=== PATIENT | female | born 1950 | race Caucasian/White ===

== ENCOUNTER → 2018-05-14 | Outpatient (CLI) | payer MEDICARE, OTHER, BC ==
--- NOTE | 2018-05-14 12:33 | RADIOLOGY REPORT (SQ) ---
EXAM DESCRIPTION: CHEST PA/LATERAL COMPLETED DATE/TIME: 05/14/2018 12:25 pm REASON FOR STUDY: COUGH COMPARISON: None. EXAM PARAMETERS: NUMBER OF VIEWS: two views TECHNIQUE: Digital Frontal and Lateral radiographic views of the chest acquired. RADIATION DOSE: NA LIMITATIONS: none FINDINGS: LUNGS AND PLEURA: No opacities, masses or pneumothorax. No pleural effusion. MEDIASTINUM AND HILAR STRUCTURES: No masses or contour abnormalities. HEART AND VASCULAR STRUCTURES: Heart normal size. No evidence for failure. BONES: No acute findings. HARDWARE: None in the chest. OTHER: No other significant finding. IMPRESSION: NO SIGNIFICANT RADIOGRAPHIC FINDING IN THE CHEST. TECHNICAL DOCUMENTATION: JOB ID: [id number] [employer]- All Rights Reserved Reading location - IP/workstation name: [email or web address]
== END ==
LOC: OD 11:57
PROVIDERS: ATTEND Physician Assistant
DX: R05 Cough (principal)
CPT/HCPCS: 71046

== ENCOUNTER 2018-11-12 10:06 | Day surgery (SDC) | payer MEDICARE, OTHER, BC ==
[~2018-11-12 10:06] MED LIST: KETOROLAC TROMETHAMINE 0.45% 4 DROP/0.4 ML DROPERETTE OD PRN
[2018-11-12] MEDS: CYCLOPENTOLATE 0.2%/PHENYLEPHRINE 1% OPH SOLN 2 ML OD PRN ×3 (10:38→11:06)
[2018-11-12] MEDS: TROPICAMIDE 1% OPH SOLN 3 ML OD PRN ×3 (10:38→11:06)
[2018-11-12] MEDS: BESIFLOXACIN HCL 0.6% OPH SUSP 5 ML BOTTLE OD PRN ×4 (10:39→11:26)
[2018-11-12] MEDS: TETRACAINE HCL 0.5% OPH SOLN 4 ML OD PRN ×4 (10:40→11:11)
[2018-11-12] MEDS ORDERED: MIDAZOLAM 2 MG/2 ML INJ ONE (11:13)
[2018-11-12] MEDS: LIDOCAINE 1%/PHENYLEPHRINE 1.5% 1 ML VIAL ONE ×2 (11:18)
[2018-11-12] MEDS: CHONDR SU A NA/HYALUR INTRAOC KIT (SURGICARE) ONE ×2 (11:18)
[2018-11-12] MEDS: EPINEPHRINE INJ/PF 1 MG/1 ML AMPULE ONE ×2 (11:18)
[2018-11-12] MEDS: DORZOLAMIDE HCL 2%/TIMOLOL MALEAT 0.5% OPH SOLN 10 ML OD PRN ×2 (11:26)
--- NOTE | 2018-11-12 21:50 | [facility] OPERATIVE REPORT E ---
[facility] Operative Report NAME: DONALDO ROSADO AGE: 68Y DATE OF SURGERY: 11/12/2018 ROOM: PREOPERATIVE DIAGNOSIS: CATARACT, RIGHT EYE. POSTOPERATIVE DIAGNOSIS: CATARACT, RIGHT EYE. OPERATION: Cataract extraction with insertion of an IOL of the right eye. SURGEON: STEVIE GILLESPIE M.D. ANESTHESIA: Topical. PROCEDURE: After obtaining appropriate consent, the patient's right eye was prepped and draped in sterile fashion as well as the surgeon in a sterile manner and cataract surgery was started. First a paracentesis blade was used to make a side-port incision. Viscoelastic was used to inflate the anterior chamber. Next a 2.4 mm incision was made with a 2.4 mm blade, clear corneal temporally. A continuous capsulorrhexis was made using a cystotome and Utrata forceps. Following this hydrodissection was carried out to make the lens fully loose and mobile and it was rotated 90 degrees. Following this, a qonxft-wwo-qxwawka technique was used to phacoemulsify the lens with a CDE of 10.39. The remaining cortex was removed with irrigation/aspiration. Provisc was instilled into the capsular bag to inflate the bag. A SN60WF, 22.0 diopter lens was placed. The remaining viscoelastic material was removed with irrigation/aspiration. Following this, the incision was found to be watertight. Besivance was instilled into the eye and a protective shield was placed over the eye. The patient returned to the postoperative recovery in stable condition. DICTATING PHYSICIAN: STEVIE GILLESPIE M.D. [id number] PHY#: [id number] ID: [id number] JOB#: [id number] ACCT: [id number] cc:STEVIE GILLESPIE M.D. >
--- NOTE | 2018-11-12 21:56 | [facility] DISCHARGE SUMMARY E ---
[facility] Discharge Summary NAME: DONALDO ROSADO AGE: 68Y ADMITTED: 11/12/2018 DISCHARGED: 11/12/2018 HOSPITAL COURSE: This is a 68-year-old female who underwent cataract extraction of the right eye. DIAGNOSIS: CATARACT, RIGHT EYE. She underwent surgery because she was having trouble with small print. DISCHARGE INSTRUCTIONS: She should be on a regular diet. No bending at her waist, no heavy lifting. She should use her moxifloxacin, Predforte, and Ilevro at 3 p.m. and 8 p.m. and sleep with a rigid shield. I will see her for her 1 day postoperative tomorrow. DICTATING PHYSICIAN: STEVIE GILLESPIE M.D. [id number] PHY#: [id number] ID: [id number] JOB#: [id number] ACCT: [id number] cc:STEVIE GILLESPIE M.D. >
== END 2018-11-12 12:17 | disposition home or self-care (01) ==
LOC: SC 10:06
PROVIDERS: ATTEND Internal Medicine
DX: H25.11 Age-related nuclear cataract, right eye (principal); E11.9 Type 2 diabetes mellitus without complications; I10 Essential (primary) hypertension; Z79.899 Other long term (current) drug therapy; K21.9 Gastro-esophageal reflux disease without esophagitis
CPT/HCPCS: 66984; 82962; J2250; J3490 ×2; A9270; J0171; J2370; 142; V2632

== ENCOUNTER 2018-12-10 09:15 | Day surgery (SDC) | payer MEDICARE, OTHER, BC ==
[~2018-12-10 09:15] MED LIST changes: +CHONDR SU A NA/HYALUR INTRAOC KIT (SURGICARE) ONE; +EPINEPHRINE INJ/PF 1 MG/1 ML AMPULE ONE; +FENTANYL CITRATE INJ/PF 100 MCG/2 ML AMPUL ONE; -KETOROLAC TROMETHAMINE 0.45% 4 DROP/0.4 ML DROPERETTE OD PRN; +KETOROLAC TROMETHAMINE 0.45% 4 DROP/0.4 ML DROPERETTE OS PRN; +LIDOCAINE 1%/PHENYLEPHRINE 1.5% 1 ML VIAL ONE; +MIDAZOLAM 2 MG/2 ML INJ ONE
[2018-12-10] MEDS: BESIFLOXACIN HCL 0.6% OPH SUSP 5 ML BOTTLE OS PRN ×4 (10:00→10:53)
[2018-12-10] MEDS: TROPICAMIDE 1% OPH SOLN 3 ML OS PRN ×3 (10:00→10:25)
[2018-12-10] MEDS: CYCLOPENTOLATE 0.2%/PHENYLEPHRINE 1% OPH SOLN 2 ML OS PRN ×3 (10:00→10:25)
[2018-12-10] MEDS: TETRACAINE HCL 0.5% OPH SOLN 4 ML OS PRN ×3 (10:00→10:32)
[2018-12-10] MEDS: DORZOLAMIDE HCL 2%/TIMOLOL MALEAT 0.5% OPH SOLN 10 ML OS PRN ×2 (10:53)
--- NOTE | 2018-12-10 13:44 | Operative Report ---
Operative Report-[facility] Operative Report: DATE OF SURGERY: 12/10/2018 PREOPERATIVE DIAGNOSIS: Cataracts, left eye POSTOPERATIVE DIAGNOSIS: Cataract, left eye OPERATION: Cataract extraction with insertion of an IOL of the left eye. Intraocular Lens Model: [21.0 sn60wf] SURGEON: Shane Walters MD ANESTHESIA: Topical PROCEDURE: After obtaining appropriate consent, the patient's left eye was prepped and draped in a sterile fashion as well as the surgeon in the sterile manner and cataract surgery was started. First a paracentesis blade was used to make a side-port incision. Viscoelastic was used to inflate the anterior chamber. Next a 2.4 mm incision was made with a 2.4 mm blade, clear corneal temporarily. A continuous capsulorrhexis was made using a cystotome and Utrata forceps. Following this hydrodissection was carried out to make commands fully loose and mobile and it was rotated 90 degrees. Following this, a divide and conquer technique was used to phacoemulsify the lens. The remaining cortex was removed with an irrigation/aspiration. Provisc was instilled into the capsular bag to inflate the bag.The intracular lens was placed. The remaining viscoelastic material was removed with irrigation/aspiration. Following this, the incision was found to be watertight. Besivance and Cosopt was instilled into the eye and a protective shield was placed over the eye. The patient was turned to the postoperative recovery in a stable condition.
--- NOTE | 2018-12-10 13:45 | PDOC DISCHARGE SUMMARY ---
Discharge Summary-[facility] Discharge Summary: DATE OF SURGERY: 12/10/2018 PREOPERATIVE DIAGNOSIS: Cataract, left eye POSTOPERATIVE DIAGNOSIS: Cataract, left eye OPERATION: Cataract extraction with insertion of an IOL of the left eye. SURGEON: Shane Walters MD ANESTHESIA: Topical The patient underwent surgery because they are having [difficulty seeing newspaper]. They're to be on a regular diet, no bending at their waist, and no heavy lifting. They should use the prescribed antibiotic, NSAID, and steroid at 3 PM and 8 PM. They should sleep with a rigid shield and I will see them for 1 day postoperative tomorrow.
== END 2018-12-10 11:29 | disposition home or self-care (01) ==
LOC: SC 09:15
PROVIDERS: ATTEND Internal Medicine
DX: H25.12 Age-related nuclear cataract, left eye (principal); Z96.1 Presence of intraocular lens; I10 Essential (primary) hypertension; E11.9 Type 2 diabetes mellitus without complications
CPT/HCPCS: 66984; 82962; V2632; J2250; J3490 ×2; A9270; J0171; J2370; 142; J3010

== ENCOUNTER 2019-01-04 21:35 | Emergency (ER) | payer MEDICARE, OTHER, BC ==
[2019-01-04 22:40] VITALS: BP 138/62
--- NOTE | 2019-01-04 22:48 | RADIOLOGY REPORT (SQ) ---
XR WRIST 3 OR MORE VIEWS CLINICAL STATEMENT: bone tenderness COMPARISON: None FINDINGS: Bony alignment is anatomic. There is a minimally displaced triquetral avulsion fracture noted on the lateral view. Mild radiocarpal degenerative changes. Scaphoid bone appears intact. IMPRESSION: Minimally displaced triquetral avulsion fracture noted.
--- NOTE | 2019-01-04 22:49 | RADIOLOGY REPORT (SQ) ---
XR HAND 1-2 VIEWS CLINICAL STATEMENT: bone tenderness COMPARISON: None FINDINGS: Bony alignment is anatomic. Mild interphalangeal joint degenerative changes involving the DIP joints. Minimally displaced triquetral avulsion fracture noted at level of the wrist. The bones of the fingers are intact. IMPRESSION: Minimally displaced triquetral avulsion fracture.
--- NOTE | 2019-01-04 22:51 | RADIOLOGY REPORT (SQ) ---
XR KNEE 4 OR MORE VIEWS CLINICAL STATEMENT: bone tenderness COMPARISON: None FINDINGS: Bony alignment is anatomic. There is no fracture or dislocation. The soft tissues are unremarkable. Mild tricompartmental degenerative changes. No significant joint effusion. IMPRESSION: No fracture.
[2019-01-04] MEDS ORDERED: HYDROCODONE/ACETAMINOPHEN 5-325 MG (6 TAB/ER DISP) PO PRN (23:56)
--- NOTE | 2019-01-05 00:09 | ER Document Report ---
ED Fall - General Chief Complaint: Fall Stated Complaint: FALL,LEFT WRIST AND RIGHT KNEE INJURY Time Seen by Provider: 01/04/19 23:37 Primary Care Provider: [facility] [Provider Group] - Follow up in 3-5 days OLIVER PALMA MD [Primary Care Provider] - Follow up tomorrow Mode of Arrival: Wheelchair Information source: Patient, Relative Notes: 68-year-old female presented to ED for complaint of pain to her left wrist hand and right knee. She states she just tripped over a curb earlier today falling injuring her left wrist and hand and right knee. She states she has arthritis already and this is caused her trouble to walk. She states is extremely painful to bend or straighten her knee but when she gets that straightened she is able to tolerate it but the bending it [id number] is excruciating. She also is not able to use her wrist due to the pain. Patient is alert oriented respirations regular and unlabored speaking in full sentences. Pupils equal and react to light able to answer all questions appropriate no neurological deficits obvious. She denies hitting her head she denies being on any blood thinners. TRAVEL OUTSIDE OF THE [place] IN LAST 30 DAYS: No - HPI Occurred: This evening Where: Outdoors, Public place Context: Tripped - Over a curb Associated symptoms: None Location of injury/pain: Hand - Left, Knee - Right, Wrist - Left Quality of pain: Achy, Sharp, Throbbing Severity: Moderate Pain Level: 4 - Related data Allergies/Adverse Reactions: No Known Allergies Allergy (Verified 01/04/19 21:39) Past Medical History - General Information source: Patient - Social History Smoking Status: Never Smoker Frequency of alcohol use: None Drug Abuse: None Lives with: Family Family History: Reviewed & Not Pertinent Patient has suicidal ideation: No Patient has homicidal ideation: No - Past Medical History Cardiac Medical History: Reports: Hx Hypertension - CONTROLLED/MEDICATED Pulmonary Medical History: Reports: Hx Bronchitis - 2007 EENT Medical History: Reports: None Neurological Medical History: Reports: None Endocrine Medical History: Reports: Hx Diabetes Mellitus Type 2 Renal/ Medical History: Reports: None Malignancy Medical History: Reports: None GI Medical History: Reports: None Musculoskeletal Medical History: Reports Hx Arthritis, Reports Hx Musculoskeletal Deformity, Reports Hx Musculoskeletal Trauma Skin Medical History: Reports None Psychiatric Medical History: Reports: None Traumatic Medical History: Reports: Hx Fractures - Right arm many years ago left wrist 01/05/2019 Infectious Medical History: Reports: None Past Surgical History: Reports: Hx Cholecystectomy, Hx Hysterectomy, Hx Or thopedic Surgery - Back surgery - Immunizations Hx Diphtheria, Pertussis, Tetanus Vaccination: Yes - tetanus shot 06/2011 Hx Pneumococcal Vaccination: 04/21/08 Review of Systems - Review of Systems Constitutional: No symptoms reported EENT: No symptoms reported Cardiovascular: No symptoms reported Respiratory: No symptoms reported Gastrointestinal: No symptoms reported Genitourinary: No symptoms reported Female Genitourinary: No symptoms reported Musculoskeletal: Joint pain - Right knee left wrist and hand, Joint swelling - Right knee and left wrist and hand Skin: Change in color - Bruising swelling to right knee left hand and wrist Hematologic/Lymphatic: No symptoms reported Neurological/Psychological: No symptoms reported -: Yes All other systems reviewed and negative Physical Exam - Vital signs Vitals: Temp Pulse Resp BP Pulse Ox 98.7 F 64 18 138/62 H 96 01/04/19 22:37 01/04/19 22:37 01/04/19 22:37 01/04/19 22:37 01/04/19 22:37 Interpretation: Normal - General General appearance: Appears well, Alert - HEENT Head: Normocephalic, Atraumatic Eyes: Normal Pupils: PERRL - Respiratory Respiratory status: No respiratory distress Chest status: Nontender Breath sounds: Normal Chest palpation: Normal - Cardiovascular Rhythm: Regular Heart sounds: Normal auscultation Murmur: No - Abdominal Inspection: Normal Distension: No distension Bowel sounds: Normal Tenderness: Nontender Organomegaly: No organomegaly - Back Back: Normal, Nontender - Extremities General upper extremity: Normal color, Normal temperature General lower extremity: Normal color, Normal temperature. No: Nate's sign Wrist: Tender, Ecchymosis, Limited ROM. No: Abrasion, Deformity, Dislocation, Instability Hand: Tender - Neurological Neuro grossly intact: Yes Cognition: Normal Orientation: AAOx4 [place] Coma Scale Eye Opening: Spontaneous [place] Coma Scale Verbal: Oriented [place] Coma Scale Motor: Obeys Commands [place] Coma Scale Total: 15 Speech: Normal Motor strength normal: LUE, RUE, LLE, RLE Sensory: Normal - Psychological Associated symptoms: Normal affect, Normal mood - Skin Skin Temperature: Warm Skin Moisture: Dry Skin Color: Normal Course - Re-evaluation Re-evalutation: 01/05/19 02:56 X-ray discussed with patient and written report of x-rays given to patient. She did have a avulsion fracture of the left triquetrum. Patient was treated with a volar short arm splint she also had a bruised swollen painful right knee with difficulty bearing any weight on the right knee. She was treated with a knee immobilizer and then she was able to bear weight and stand the pain in her knee. She was treated with a [place] dispense pack and instructed to follow-up with her primary care and orthopedics. Patient verbalized understanding and agreement with treatment plan and patient was discharged home - Vital Signs Vital signs: Temp Pulse Resp BP Pulse Ox 98.7 F 64 18 138/62 H 96 01/04/19 22:37 01/04/19 22:37 01/04/19 22:37 01/04/19 22:37 01/04/19 22:37 - Diagnostic Test Radiology reviewed: Image reviewed, Reports reviewed Procedures - Immobilization Right Knee Time completed: 00:16 Immobilizer type: Knee immobilizer Performed by: PCT Post-Proc Neuro Vasc Exam: Normal Alignment checked and good: Yes Left Wrist Time completed: 00:17 Immobilizer type: Volar splint, Sling Performed by: PCT Post-Proc Neuro Vasc Exam: Normal Alignment checked and good: Yes Discharge - Discharge Clinical Impression: left triquetrum avulsion fracture Fall Qualifiers: Encounter type: initial encounter Qualified Code(s): W19.XXXA - Unspecified fall, initial encounter Right knee injury Qualifiers: Encounter type: initial encounter Qualified Code(s): S89.91XA - Unspecified injury of right lower leg, initial encounter Condition: Stable Disposition: HOME, SELF-CARE Additional Instructions: Fractured of the Wrist You have a fracture of a bone of the wrist. A splint or cast will be placed. The first few days, the injury should be elevated and ice packed. Healing usually takes about five or six weeks. It's critical that the wrist be kept immobilized until the fracture is healed. Do not allow the splint or cast to become damaged. If looseness develops, return for a new fitting. Don't do any physical work or sport activity which causes pain in the wrist. Call the doctor or return at once if pain becomes severe, or if the hand becomes numb or swollen. SUSPECTED INTERNAL KNEE INJURY: The examiner of your injured knee suspects an internal injury to the cartilage or internal ligaments. This must be further investigated by an data warehousing specialist. The knee should be protected, ice packed, and elevated while awaiting your follow-up exam by the orthopedist. If there is severe swelling, severe pain, or any new symptoms while awaiting your exam, you should call the orthopedist. (If he/she is unavailable, call us or return for re-examination.) KNEE IMMOBILIZING SPLINT: The knee immobilizing splint will protect the injury while healing begins. This type of splint does not allow the knee to bend at all. No running or sports will be possible. If the splint allows painfree walking, it's giving adequate protection. If there is still significant pain, crutches may be needed as well. Don't do anything that hurts. Adjusted the splint, if necessary. The stiffeners on the sides are attached with Velcro, so they can be easily moved to adjust for thigh and calf size. If you need help with these adjustments, come back. You will lose muscle strength in the thigh while using this splint. The doctor will advise you if it's safe to do isometric knee exercises while you use it. ICE & ELEVATION: Apply ice packs frequently against the painful area. Many different schedules are recommended, such as "20 minutes on, 20 minutes off" or "one hour ice, two hours rest." If you need to work, you may need to go longer between ice treatments. You should plan to have the area ice packed AT LEAST one-fourth of the time. The ice should be applied over the wrap, tape, or splint, or over a layer of cloth -- not directly against the skin. Some ice bags have a built-in cloth and can be put directly on the skin. Your injured part should be elevated as much as possible over the next 48 hours. Try to keep the injury above the level of the heart. Avoid use of the injured area. Elevation and rest will decrease the swelling. USE OF IOTE-YNV-SUNZGKX IBUPROFEN: Ibuprofen (Advil, Nuprin, Medipren, Motrin IB) is a medication for fever and pain control. In addition, it has anti- inflammatory effects which may be beneficial, especially in the treatment of injuries. It's best to take ibuprofen with food. Persons with ulcer disease or allergy to aspirin should notify their physician of this before taking ibuprofen. Ibuprofen can be given every four to six hours, for a total of four doses daily. Age Pain or fever dose Antiinflammatory dose 6-8 yr 200 mg (1 tab) 200 mg (1 tab) 9-11 yr 200 mg (1 tab) 200-400 mg (1-2 tab) 11-14 yr 200-400 mg (1-2 tab) 400 mg (2 tab) 15-adult 400 mg (2 tab) 600 mg (3 tab) ORAL NARCOTIC MEDICATION: You have been given a [place] dispense pack for pain control. This medication is a narcotic. It's best taken with food, as nausea can result if taken on an empty stomach. Don't operate machinery or drive within six hours of taking this medication. Do not combine this medicine with alcohol, or with any medication which can cause sedation (such as cold tablets or sleeping pills) unless you get permission from the physician. Narcotics tend to cause constipation. If possible, drink plenty of fluids and eat a diet high in fiber and fruits. Please be aware that prescription narcotics also have the potential for abuse. People become addicted to these medications because of the general sense of wellbeing that they induce. This feeling along with a significant reduction in tension, anxiety, and aggression provides a stimulating seductive quality to these drugs. Once your pain is under control, we encourage you to discard your unused narcotics. Splint Pending Casting Your injury can't be casted until the swelling has subsided. Therefore, a temporary splint has been placed to protect the injury. Full use of an injured area is not possible in a splint. You should follow the doctor's instructions concerning rest, ice, and elevation of the injury. Never do anything which causes pain under the splint. Keep the splint on ALL THE TIME until you return for casting. If there is unexpected severe pain, or numbness, discoloration, or swelling beyond the splint, you should return at once. FOLLOW-UP CARE: If you have been referred to a physician for follow-up care, call the physicians office for an appointment as you were instructed or within the next two days. If you experience worsening or a significant change in your symptoms, notify the physician immediately or return to the Emergency Department at any time for re-evaluation. Forms: Elevated Blood Pressure Referrals: OLIVER PALMA MD [Primary Care Provider] - Follow up tomorrow [facility] [Provider Group] - Follow up in 3-5 days
== END 2019-01-05 00:41 | disposition home or self-care (01) ==
LOC: ER 21:35
DX: S62.112A Displaced fracture of triquetrum [cuneiform] bone, left wrist, initial encounter for closed fracture (principal); S89.91XA Unspecified injury of right lower leg, initial encounter; W10.1XXA Fall (on)(from) sidewalk curb, initial encounter; I10 Essential (primary) hypertension; E11.9 Type 2 diabetes mellitus without complications; Z90.49 Acquired absence of other specified parts of digestive tract; Z90.710 Acquired absence of both cervix and uterus
CPT/HCPCS: 73120; 73564; 73110; 29125; L1830; A9270; 99283